=== PATIENT | female | born 1970 | race American Indian/Alaskan Native ===

== ENCOUNTER 2016-06-20 20:21 | Emergency (ER) | payer SELFPAY ==
[2016-06-21] MEDS ORDERED: TORADOL IM ONE (04:09)
[2016-06-21] MEDS ORDERED: FLEXERIL PO ONE (04:09)
[2016-06-21] MEDS ORDERED: DECADRON IM ONE (04:10)
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
[2016-06-21 05:56] VITALS: BP 156/86
== END 2016-06-21 05:30 | disposition home or self-care (01) ==
LOC: ED 20:21
DX: M62.831 Muscle spasm of calf (principal); F17.200 Nicotine dependence, unspecified, uncomplicated; V49.49XA Driver injured in collision with other motor vehicles in traffic accident, initial encounter; Y93.9 Activity, unspecified; Y92.9 Unspecified place or not applicable; Y99.9 Unspecified external cause status
CPT/HCPCS: 96372; 99283; J1100; J1885